=== PATIENT | male | born 2000 | race Caucasian/White ===

== ENCOUNTER 2021-07-26 10:27 | Emergency (ER) | payer BC, OTHER ==
--- OUTSIDE RECORDS SUMMARY | 2021-07-26 10:30 | XMS REPORT | Continuity of Care Document ---
:2000 Author Organization [facility] t Address [address] [place] [address] Care Team Providers Name Role Phone IHDE_G Attending Clinician Unavailable Hipolito_Cole Attending Clinician Unavailable CARIAS Attending Clinician Unavailable IHDE_G Admitting Clinician Unavailable Randall Admitting Clinician Unavailable Payers Payer Name Policy Type Policy Number Effective Date Expiration Date S lu[place] [id number] 2019 00:00:00 [place] Problems Condition Condition Condition Status Onset Resolution Last Treating Co mments Source Name Details Category Date Date Treatment Clinician Date Anxiety Anxiety Problem Active [facility] 3-23 da 00:00: Medical 00 Group Allergies, Adverse Reactions, Alerts This patient has no known allergies or adverse reactions. Social History Smoking Status Start Date Stop Date Source Never Smoker [facility] Medications Ordered Filled Start Stop Current Ordering Indication Dosage Frequency Signature Comments Components Source Medication Medication Date Date Medication? Clinician (SIG) Name Name hydroxyzine hydroxyzine No hydroxyzin [facility] HCl 25 mg HCl 25 mg e HCl 25 d a tablet TAKE tablet TAKE mg tablet Medical 1 TO 2 1 TO 2 TAKE 1 TO Group TABLETS BY TABLETS BY 2 TABLETS MOUTH EVERY MOUTH EVERY BY MOUTH 6 HOURS 6 HOURS EVERY 6 NEEDED FOR NEEDED FOR HOURS ANXIETY ANXIETY NEEDED FOR ANXIETY paroxetine paroxetine No paroxetine [facility] 20 mg 20 mg 20 mg da tablet TAKE tablet TAKE tablet Medical 1 TABLET BY 1 TABLET BY TAKE 1 Group MOUTH EVERY MOUTH EVERY TABLET BY NIGHT AT NIGHT AT MOUTH BEDTIME BEDTIME EVERY NIGHT AT BEDTIME Vital Signs Vital Name Observation Time Observation Value Comments Source BP Diastolic 2020-06-21 00:00:00 68 mm[Hg] [facility] Height 2020-06-21 00:00:00 68 [in_i] [facility] BMI (Body Mass 2020-06-21 00:00:00 26.6 kg/m2 [facility] Index) Group BP Systolic 2020-06-21 00:00:00 122 mm[Hg] [facility] Body Weight 2020-06-21 00:00:00 175 [lb_av] [facility] Height 2020-05-31 00:00:00 68 [in_i] [facility] BMI (Body Mass 2020-05-31 00:00:00 26.7 kg/m2 [facility] Index) Group BP Systolic 2020-05-31 00:00:00 127 mm[Hg] [facility] Body Weight 2020-05-31 00:00:00 175.3 [lb_av] [facility] BP Diastolic 2020-05-31 00:00:00 82 mm[Hg] [facility] Procedures This patient has no known procedures. Encounters Start End Encounter Admission Attending Care Care Encounter Source Date/Time Date/Time Type Type Clinicians Facility Department ID 2020-09-02 2020-09-02 Outpatient I[facility]DE_G [facility] [id number] [facility] 01:02:00 01:02:00 [facility] 2020-07-29 2020-07-29 Outpatient I[facility]_G [facility] [id number] [facility] 01:02:00 01:02:00 0430 [facility] 2020-06-24 2020-06-24 Outpatient IHDE_G MMG MMG [id number] [facility] 01:02:00 01:02:00 0326 [facility] 2020-06-21 2020-06-21 Outpatient IHDE_G MMG MMG [id number] [facility] 04:08:00 04:08:00 0323 [facility] 2020-06-212020-06-21 Outpatient IHDE_G MMG [facility] [id number] [facility] 04:08:00 04:08:00 0324 Medical Group 2020-06-21 2020-06-21 Cristian [facility] [place] - [id number] M [facility] 00:00:00 00:00:00 Luis Manuel Caldwell MD: [facility] [address], [place] [address] , Ph. [phone] 2020-05-31 2020-05-31 [place] [id number] [facility] 06:16:00 06:16:00 0302 Medical Group 2020-05-31 2020-05-31 [place] [id number] [facility] 06:16:00 06:16:00 0315 Medical Group 2020-05-31 2020-05-31 Outpatient Young_J MMG [facility] [id number] [facility] 06:16:00 06:16:00 0322 Medical Group 2020-05-31 2020-05-31 Cristian [facility] [place] - [id number] M [facility] 00:00:00 00:00:00 Luis Manuel Caldwell MD: [facility] [address], [place] [address] , Ph. [phone] 2020-01-11 2020-01-11 Outpatient Young_J MMG [facility] [id number] [facility] 05:13:00 05:13:00 0224 Medical Group 2020-01-11 2020-01-11 [place] [id number] [facility] 05:13:00 05:13:00 1012 Medical Group 2019-12-27 2019-12-27 Emergency [facility] [id number] [place] [address] 00:00:00 00:00:00 QUINTIN [address] Results Test Description Test Time Test Comments Results Result Comments Source CBC W Auto Differential panel - Blood 2020-06-02 01:36:00 Test Item Value Reference Range Interpretation Comme nts white blood count (test code = white blood count) 6.7 K/uL 4.0- 12.3 red blood count (test code = red blood count) 4.85 M/uL 3.80-5.8 0 hemoglobin (test code = hemoglobin) 14.7 g/dL 11.7-17.2 hematocrit (test code = hematocrit) 43.8 % 35.0-51.0 MCV [Entitic volume] (test code = 85915-1) 90.3 fL 83-100 mean corpuscular hemoglobin (test code = mean corpuscular 30.3 pg 26.8-33.4 hemoglobin) mean corpuscular HGB conc (test code = mean corpuscular HGB 33.6 g/ dL 30-35 conc) red cell distribution width (test code = red cell 11.8 % 12.0 -14.0 L distribution width) platelet count (test code = platelet count) 243 K/uL 175-450 mean platelet volume (test code = mean platelet volume) 10.7 fL 9.4-12.6 Segmented neutrophils/100 leukocytes in Blood (test code = 65.5 % 44.7-82.4 76671-4) Immature granulocytes [#/volume] in Blood (test code = 0.0 K/uL 0.0-0.03 H 39892-5) lymphocyte% (test code = lymphocyte%) 24.8 % 10.0-50.0 mono % (test code = mono %) 7.0 % 3.9-13.4 eos % (test code = eos %) 1.2 % 0.0-6.4 Basophils/100 leukocytes in Unspecified specimen (test code 0.9 % 0.2-1.2 = 17467-6) Band form neutrophils [#/volume] in Blood (test code = 4.42 K/uL 1.78-5.38 98694-9) Lymphocytes [#/volume] in Unspecified specimen by Automated 1.7 K/u L 1.32-3.57 count (test code = 24195-7) mono # (test code = mono #) 0.47 K/uL 0.30-0.82 eos # (test code = eos #) 0.08 K/uL 0.04-0.54 basophil # (test code = basophil #) 0.06 K/uL 0.01-0.08 NRBC% (test code = NRBC%) 0 /100 WBC 0-0.2 NRBC# (test code = NRBC#) 0 K/uL [facility] unspecified - [id number] 01:36:00NeutrophilsBandLymphocyteAtypical LymphMonocyteEosinophilBasophilMetamyelocyteMyelocytePromyelocyteBlastsNucleated Red Blood CellOther Cell TypeAbs Neutrophil Count (Man)Abs Lymph Count (Man)Abs Monocyte Count (Man)Abs Eosinophil Count (Man)Abs Basophil Count (Man)Platelet EstimatePlatelet MorphologyPo ikilocytosisAnisocytosisMacrocytosisSchistocytesTarget CellsTear Drop CellsOvalocytesToxic GranulationBurr CellsRouleauToxic VacuolationDifferential comment-[facility] SystemComprehensive metabolic 2000 panel - Serum or [id number] 01:36:00 Test Item Value Reference Range Interpretation Comments Glucose [Mass/volume] in Serum or 86 mg/dL 74-106 Plasma (test code = 2345-7) Urea nitrogen [Mass/volume] in 13 mg/dL 6-20 Serum or Plasma (test code = 3094-0) osmolality calculated,serum (test 275 mOsm/kg 280-300 L code = osmolality calculated,serum) creatinine (test code = 0.8 mg/dL 0.70-1.20 creatinine) glomerular filtration rate (test >60.00 code = glomerular filtration rate) Urea nitrogen/Creatinine [Mass 16.3 12-20 Ratio] in Serum or Plasma (test code = 3097-3) sodium level (test code = sodium 138 mmol/L 135-145 level) potassium level (test code = 4.1 mmol/L 3.5-5.2 potassium level) chloride level (test code = 103 mmol/L 98-108 chloride level) CO2 (test code = CO2) 27 mmol/L 21-32 anion gap (test code = anion gap) 12.1 mEq/L 12-20 calcium level (test code = 9.6 mg/dL 8.6-10.0 calcium level) total protein (test code = total 7.5 g/dL 6.6-8.7 protein) albumin (test code = albumin) 4.6 g/dL 3.5-5.2 globulin (test code = globulin) 2.9 gm/dL A/G ratio (test code = A/G ratio) 1.6 >1.0 bilirubin,total (test code = 0.4 mg/dL 0.0-1.2 bilirubin,total) AST/SGOT (test code = AST/SGOT) 19 U/L 15-40 Alanine aminotransferase 20 U/L 0-41 [Enzymatic activity/volume] in Serum or Plasma (test code = 1742-6) Alkaline phosphatase [Enzymatic 66 U/L 40-130 activity/volume] in Serum or Plasma (test code = 6768-6) [facility]
[2021-07-26] MEDS ORDERED: NA CHLORIDE 0.9% 1,000 ML ONE (10:44)
[2021-07-26] MEDS ORDERED: MORPHINE 4 MG/ML SYR ONE (10:44)
[2021-07-26] MEDS ORDERED: ONDANSETRON 4 MG/2 ML VIAL ONE (10:44)
[2021-07-26 10:55] LABS: Absolute Lymphocytes (CBC) 2.8 K/uL (0.7-4.9); Hematocrit 43.8 % (39.6-49.0); Lymphocytes % 35.5 % (15.3-44.8); MPV 9.6 fL (7.6-11.3); RBC Red Blood Cell Count 5.01 M/uL (4.33-5.43)
--- NOTE | 2021-07-26 11:00 | RAD REPORT ---
EXAM DESCRIPTION: CTStone Protocol - 07/26/2021 10:51 am CLINICAL HISTORY: Flank pain, kidney stone suspected COMPARISON: CT ABD PELVIS W CONTRAST dated 10/06/2007 TECHNIQUE: CT of the abdomen and pelvis was performed. All CT scans are performed using dose optimization technique as appropriate and may include automated exposure control or mA/KV adjustment according to patient size. FINDINGS: Lower chest: 2 mm left lower lobe pulmonary nodule which is almost certainly benign. Liver: No acute abnormality or suspicious lesions. Biliary: No biliary ductal dilatation. Stomach: No significant focal abnormality. Duodenum: No significant focal abnormality. Pancreas: No significant abnormality. Spleen: No significant abnormality. Adrenal: No suspicious lesions. Kidney/ureter: Mild left-sided hydronephrosis secondary to a 4 mm stone in the left proximal ureter. Punctate stone versus papillary tip calcification in the lower pole the right kidney. Retroperitoneum: No retroperitoneal adenopathy. Vascular: No aneurysm. Bowel: No significant focal abnormality. Appendectomy. Peritoneum: No ascites or free air. Bladder: Grossly unremarkable. Reproductive: No adnexal masses. Bones: No acute fracture. Other: n/a IMPRESSION: Mild left-sided hydronephrosis secondary to a 4 mm stone in the left proximal ureter.
[2021-07-26 11:02] LABS: Albumin 4.3 g/dL (3.4-5.0); Bilirubin Total 0.4 mg/dL (0.2-1.0); Potassium 3.4 mmol/L (3.5-5.1)
[2021-07-26] MEDS ORDERED: MAGNESIUM SULFATE 1 gm IVPB 1 GM/100 ML BAG IV ONE (11:50)
[2021-07-26] MEDS ORDERED: KETOROLAC 30 MG/ML INJ ONE (11:50)
[2021-07-26] MEDS ORDERED: NA CHLORIDE 0.9% 2,000 ML ONE (11:50)
[2021-07-26] MEDS ORDERED: TAMSULOSIN 0.4 MG SR CAP ONE (12:00)
[2021-07-26 12:46] LABS: Urine Blood 3+ (Negative); Urine Glucose Negative (Negative); Urine Protein Negative (Negative); Urine Specific Gravity 1.015 (1.005-1.030)
--- NOTE | 2021-07-26 13:52 | EDPHYS ---
Physician Documentation [facility] Name: Reddy Julio Age: 20 yrs Sex: Male : 2000 Arrival Date: 07/26/2021 Time: 10:28 Bed 14 Private MD: ED Physician Parviz Sheppard HPI: 07/26 10:38 This 20 yrs old Male presents to ER via Ambulatory with complaints of Possible Kidney jmm Stone. 10:38 The patient complains of pain in the left flank. The pain radiates to the abdomen. jmm Onset: The symptoms/episode began/occurred acutely, today. Modifying factors: The symptoms are alleviated by nothing. the symptoms are aggravated by nothing. Associated signs and symptoms: Pertinent negatives:. 13:50 Is a 20-year-old male no chronic medical conditions presents emerged department with jmm complaints of left flank pain beginning earlier this morning. Also complains of nausea and vomiting. Patient had a previous calculus of his ureter about a week ago. Denies fever or chills. Denies diarrhea. Pain radiates into his abdomen. Historical: - Allergies: 10:38 No Known Allergies; jh6 - Immunization history:: Adult Immunizations up to date. - Social history:: Smoking status: Patient denies any tobacco usage or history of. ROS: 13:50 Constitutional: Negative for fever, chills, and weight loss, Cardiovascular: Negative jmm for chest pain, palpitations, and edema, Respiratory: Negative for shortness of breath, cough, wheezing, and pleuritic chest pain. 13:50 Abdomen/GI: Positive for abdominal pain. 13:50 All other systems are negative. Exam: 13:50 Constitutional: This is a well developed, well nourished patient who is awake, alert, jmm and in no acute distress. Head/Face: atraumatic. Eyes: EOMI, no conjunctival erythema appreciated ENT: Moist Mucus Membranes Neck: Trachea midline, Supple Chest/axilla: Normal chest wall appearance and motion. Cardiovascular: Regular rate and rhythm. No edema appreciated Respiratory: Normal respirations, no respiratory distress appreciated 13:50 Skin: General appearance color normal MS/ Extremity: Moves all extremities, no obvious deformities appreciated, no edema noted to the lower extremities Neuro: Awake and alert Psych: Behavior is normal, Mood is normal, Patient is cooperative and pleasant 13:50 Abdomen/GI: Inspection: abdomen appears normal, Bowel sounds: normal, Palpation: soft, moderate abdominal tenderness, in the left lower quadrant. Vital Signs: 10:35 BP 145 / 103; Pulse 77; Resp 18; Temp 98.2; Pulse Ox 100% on R/A; Weight 85.73 kg; ph Height 5 ft. 9 in. (175.26 cm); Pain 10/10; 12:01 BP 123 / 86; Pulse 63; Resp 18; Pulse Ox 97% on R/A; ph 13:00 BP 118 / 79; Pulse 61; Resp 18; Pulse Ox 99% on R/A; ph 14:00 BP 120 / 82; Pulse 68; Resp 19; Temp 98.1; Pulse Ox 100% ; ph 10:35 Body Mass Index 27.91 (85.73 kg, 175.26 cm) ph MDM: 10:38 Patient medically screened. cliff 13:51 Data reviewed: vital signs, nurses notes. Counseling: I had a detailed discussion with doron the patient and/or guardian regarding: the historical points, exam findings, and any diagnostic results supporting the discharge/admit diagnosis, lab results, radiology results, the need for outpatient follow up, to return to the emergency department if symptoms worsen or persist or if there are any questions or concerns that arise at home. ED course: Patient is alert nontoxic in appearance in the ED. Pain is relieved in the ER. Patient advised follow with urology and otherwise given strict return precautions. Patient understood agrees plan of care.. 07/26 10:38 Order name: CBC with Diff; Complete Time: 11:15 [facility] 07/26 10:38 Order name: CMP; Complete Time: 11:15 [facility] 07/26 10:38 Order name: Lipase; Complete Time: 11:15 [facility] 07/26 10:39 Order name: CT Stone Protocol; Complete Time: 11:15 [facility] 07/26 12:46 Order name: Urine Dipstick-Ancillary; Complete Time: 12:46 [facility] 07/26 10:38 Order name: IV Saline Lock; Complete Time: 10:41 [facility] 07/26 10:38 Order name: Labs collected and sent; Complete Time: 10:41 [facility] Administered Medications: 10:50 Drug: NS 0.9% 1000 ml Route: IV; Rate: 1 bolus; Site: right antecubital; jh6 14:32 Follow up: Response: No adverse reaction; IV Status: Completed infusion ph 10:50 Drug: Zofran (Ondansetron) 4 mg Route: IVP; Site: right antecubital; [facility] 12:00 Follow up: Response: No adverse reaction; Nausea is decreased ph 10:50 Drug: morphine 4 mg Route: IVP; Site: right antecubital; [facility] 12:00 Follow up: Response: No adverse reaction; Pain is decreased ph 11:51 Drug: NS 0.9% 2000 ml Route: IV; Rate: 1 bolus; Site: right antecubital; [facility] 14:31 Follow up: Response: No adverse reaction; IV Status: Completed infusion; IV Intake: ph 2000ml 11:51 Drug: Magnesium Sulfate 1 grams Route: IVPB; Infused Over: 1 hrs; Site: right [facility] antecubital; 12:50 Follow up: Response: No adverse reaction; IV Status: Completed infusion ph 11:51 Drug: Ketorolac 30 mg Route: IVP; Site: right antecubital; [facility] 12:01 Follow up: Response: No adverse reaction; Pain is decreased ph 12:00 Drug: Flomax (tamsulosin) 0.4 mg Route: PO; ph 12:01 Follow up: Response: No adverse reaction ph Disposition: 17:14 Co-signature as Attending Physician, Parviz Sheppard MD I agree with the assessment and kdr plan of care. Disposition Summary: 07/26/21 13:52 Discharge Ordered Location: Home [facility] Condition: Stable [facility] Diagnosis - Calculus of ureter [facility] Followup: [facility] - With: Private Physician - When: 2 - 3 days - Reason: Recheck today's complaints, Continuance of care, Re-evaluation by your physician Discharge Instructions: - Discharge Summary Sheet [facility] - Kidney Stones [facility] Forms: - Medication Reconciliation Form [facility] - Thank You Letter [facility] - Antibiotic Education [facility] - Prescription Opioid Use [facility] - Work release form ph Prescriptions: - Ultracet 37.5-325 mg Oral Tablet - take 1 tablet by ORAL route every 6 hours - for up to 5 days; do not exceed 8 jmm tablets per day.; 12 tablet; Refills: 0, Product Selection Permitted - ondansetron 4 mg Oral tablet,disintegrating - place 1 tablet by TRANSLINGUAL route every 8 hours As needed; 20 tablet; jmm Refills: 0, Product Selection Permitted Signatures: Dispatcher [employer] Parviz Luevano MD MD kdr Mickail, Joel, PA PA jmm Hall, Patricia, RN RN ph Hastedt, Jennifer, RN RN jh6 Corrections: (The following items were deleted from the chart) 13:50 10:38 Associated signs and symptoms: Pertinent negatives: doron sal
--- NOTE | 2021-07-26 13:52 | ER ---
Nurse's Notes [facility] Name: Reddy Julio Age: 20 yrs Sex: Male : 2000 Arrival Date: 07/26/2021 Time: 10:28 Bed 14 Private MD: Diagnosis: Calculus of ureter Presentation: 07/26 10:37 Chief complaint: Patient states: sudden onset of l sided flank pain that started this jh6 am. was told this last week that he had a large kidney stone present and that she should be able to pass it. Coronavirus screen: Vaccine status: Patient reports being unvaccinated. Ebola Screen: Patient negative for fever greater than or equal to 101.5 degrees Fahrenheit, and additional compatible Ebola Virus Disease symptoms Patient denies exposure to infectious person. Patient denies travel to an Ebola-affected area in the 21 days before illness onset. Initial Sepsis Screen: Does the patient meet any 2 criteria? Does the patient have a suspected source of infection? No. Patient's initial sepsis screen is negative. Risk Assessment: Do you want to hurt yourself or someone else? Patient reports no desire to harm self or others. Onset of symptoms was July 26, 2021. 10:37 Method Of Arrival: Ambulatory [facility] 10:37 Acuity: FRANK 3 6 Triage Assessment: 10:39 General: Appears distressed, uncomfortable, Behavior is cooperative, anxious. Pain: [facility] Complains of pain in mid back area and left mid back Pain radiates to left femoral area, left inguinal area and left iliac crest Pain currently is 10 out of 10 on a pain scale. Quality of pain is described as sharp, shooting, Pain began suddenly, Is continuous. GI: Reports nausea. Historical: - Allergies: 10:38 No Known Allergies; [facility] - Immunization history:: Adult Immunizations up to date. - Social history:: Smoking status: Patient denies any tobacco usage or history of. Screenin:40 Abuse screen: Denies threats or abuse. Nutritional screening: No deficits noted. [facility] Tuberculosis screening: No symptoms or risk factors identified. Fall Risk Assessment: 10:40 General: see triage note. [facility] 10:41 GI: Bowel sounds present X 4 quads. Abd is soft Abdomen is tender to palpation in left [facility] lower quadrant. 12:00 Reassessment: Patient appears in no apparent distress at this time. Patient and/or ph family updated on plan of care and expected duration. Pain level reassessed. Patient is alert, oriented x 3, equal unlabored respirations, skin warm/dry/pink. 13:30 Reassessment: Patient appears in no apparent distress at this time. Patient and/or ph family updated on plan of care and expected duration. Pain level reassessed. Patient is alert, oriented x 3, equal unlabored respirations, skin warm/dry/pink. 14:32 Reassessment: Patient appears in no apparent distress at this time. Patient and/or ph family updated on plan of care and expected duration. Pain level reassessed. Patient is alert, oriented x 3, equal unlabored respirations, skin warm/dry/pink. Pt d/c home Patient states symptoms have improved. Vital Signs: 10:35 BP 145 / 103; Pulse 77; Resp 18; Temp 98.2; Pulse Ox 100% on R/A; Weight 85.73 kg; ph Height 5 ft. 9 in. (175.26 cm); Pain 10/10; 12:01 BP 123 / 86; Pulse 63; Resp 18; Pulse Ox 97% on R/A; ph 13:00 BP 118 / 79; Pulse 61; Resp 18; Pulse Ox 99% on R/A; ph 14:00 BP 120 / 82; Pulse 68; Resp 19; Temp 98.1; Pulse Ox 100% ; ph 10:35 Body Mass Index 27.91 (85.73 kg, 175.26 cm) ph ED Course: 10:28 Patient arrived in ED. ds1 10:29 Itz Zamora PA is PHCP. [facility] 10:29 Parviz Sheppard MD is Attending Physician. [facility] 10:32 Patient placed in an exam room, on a stretcher, on pulse oximetry. 6 10:34 Asuncion Aly RN is Primary Nurse. ph 10:38 Triage completed. 6 10:40 Inserted saline lock: 18 gauge in right antecubital area, using aseptic technique. 6 Blood collected. 10:40 Initial lab(s) drawn, by mt, sent to lab. 6 10:41 Patient has correct armband on for positive identification. Bed in low position. Call [facility] light in reach. Side rails up X 1. Adult w/ patient. 10:[address] via wheelchair. [facility] 10:53 CT Stone Protocol In Process Unspecified. EDMS 14:34 No provider procedures requiring assistance completed. IV discontinued, intact, ph bleeding controlled, No redness/swelling at site. Pressure dressing applied. Administered Medications: 10:50 Drug: NS 0.9% 1000 ml Route: IV; Rate: 1 bolus; Site: right antecubital; [facility] 14:32 Follow up: Response: No adverse reaction; IV Status: Completed infusion ph 10:50 Drug: Zofran (Ondansetron) 4 mg Route: IVP; Site: right antecubital; [facility] 12:00 Follow up: Response: No adverse reaction; Nausea is decreased ph 10:50 Drug: morphine 4 mg Route: IVP; Site: right antecubital; [facility] 12:00 Follow up: Response: No adverse reaction; Pain is decreased ph 11:51 Drug: NS 0.9% 2000 ml Route: IV; Rate: 1 bolus; Site: right antecubital; [facility] 14:31 Follow up: Response: No adverse reaction; IV Status: Completed infusion; IV Intake: ph 2000ml 11:51 Drug: Magnesium Sulfate 1 grams Route: IVPB; Infused Over: 1 hrs; Site: right [facility] antecubital; 12:50 Follow up: Response: No adverse reaction; IV Status: Completed infusion ph 11:51 Drug: Ketorolac 30 mg Route: IVP; Site: right antecubital; [facility] 12:01 Follow up: Response: No adverse reaction; Pain is decreased ph 12:00 Drug: Flomax (tamsulosin) 0.4 mg Route: PO; ph 12:01 Follow up: Response: No adverse reaction ph Intake: 14:31 IV: 2000ml; Total: 2000ml. ph Outcome: 13:52 Discharge ordered by . belle 14:34 Discharged to home ambulatory. ph 14:34 Condition: good 14:34 Discharge instructions given to patient, Instructed on discharge instructions, follow up and referral plans. medication usage, Demonstrated understanding of instructions, follow-up care, medications, Prescriptions given X 2. 14:34 Patient left the ED. ph Signatures: Dispatcher [employer] EDMS Itz Zamora PA PA jmm Sanford, Demi ds1 Asuncion Aly RN RN ph Hastedt, Inés, RN RN jh6
[2021-07-26 14:43] VITALS: BP 120/82; TEMP 98.1; O2SAT 100
== END 2021-07-26 14:34 | disposition home or self-care (01) ==
LOC: ER 10:27
DX: N20.1 Calculus of ureter (principal); Z87.442 Personal history of urinary calculi
CPT/HCPCS: 96365; 96361; 85025; 36415; 81003; 83690; 80053; 76377; 74176; 96375; 99284; J3475; J7030 ×2; J2405

== ENCOUNTER 2021-08-22 15:21 | Emergency (ER) | payer BC ==
--- OUTSIDE RECORDS SUMMARY | 2021-08-22 15:25 | XMS REPORT | Continuity of Care Document ---
:2000 Author Organization [facility] t Address [address] [place] [address] Care Team Providers Name Role Phone IHDE_G Attending Clinician Unavailable Hipolito_Cole Attending Clinician Unavailable CARIAS Attending Clinician Unavailable IHDE_G Admitting Clinician Unavailable Hipolito_Cole Admitting Clinician Unavailable Payers Payer Name Policy Type Policy Number Effective Date Expiration Date S lu[place] [id number] 2019 00:00:00 [place] Problems Condition Condition Condition Status Onset Resolution Last Treating Co mments Source Name Details Category Date Date Treatment Clinician Date Anxiety Anxiety Problem Active [facility] 3[facility]23 da 00:00: Medical 00 Group Allergies, Adverse Reactions, Alerts This patient has no known allergies or adverse reactions. Social History Smoking Status Start Date Stop Date Source Never Smoker [facility] Medications Ordered Filled Start [...] BMI (Body Mass 2020-06-21 00:00:00 26.6 kg/m2 [facility] Index) Group BP Systolic 2020-06-21 00:00:00 122 mm[Hg] [facility] Body Weight 2020-06-21 00:00:00 175 [lb_av] [facility] Height 2020-05-31 00:00:00 68 [in_i] [facility] BMI (Body Mass 2020-05-31 00:00:00 26.7 kg/m2 [facility] Index) Group BP Systolic 2020-05-31 [...] ID 2020-09-02 2020-09-02 Outpatient IHDE_G [facility] [id number] [place] 01:02:00 01:02:00 [facility]604 [facility] 2020-07-29 2020-07-29 Outpatient IHDE_G MMG MMG [id number] [place] 01:02:00 01:02:00 0430 [facility] 2020-06-24 2020-06-24 Outpatient IHDE_G MMG MMG [id number] [place] 01:02:00 01:02:00 0326 [facility] 2020-06-21 2020-06-21 Outpatient IHDE_G MMG MMG [id number] [place] 04:08:00 04:08:00 0324 [facility] 2020-06-212020-06-21 Outpatient IHDE_G MMG [facility] [id number] [place] 04:08:00 04:08:00 0323 Medical Group 2020-06-21 2020-06-21 Cristian [facility] [place] - [id number] M [facility] 00:00:00 00:00:00 Luis Manuel Caldwell MD: [facility] [address], [place] [address] , Ph. [phone] 2020-05-31 2020-05-31 [place] [id number] [place] 06:16:00 06:16:00 0302 Medical Group 2020-05-31 2020-05-31 [place] [id number] [place] 06:16:00 06:16:00 0315 Medical Group 2020-05-31 2020-05-31 Outpatient Young_J MMG [facility] [id number] [place] 06:16:00 06:16:00 0322 Medical Group 2020-05-31 2020-05-31 Cristian [facility] [place] - [id number] M [facility] 00:00:00 00:00:00 Luis Manuel Caldwell MD: [facility] [address], [place] [address] , Ph. [phone] 2020-01-11 2020-01-11 [place] [id number] [place] 05:13:00 05:13:00 0224 Medical Group 2020-01-11 2020-01-11 Outpatient Young_J MMG MMG [id number] [place] 05:13:00 05:13:00 1012 Medical Group 2019-12-27 2019-12-27 Emergency [facility] [id number] [place] [address] 00:00:00 00:00:[address] QU[address] [...] 35.0-51.0 MCV [Entitic volume] (test code = 77679-5) 90.3 fL 83-100 mean corpuscular hemoglobin (test [...] Blood (test code = 65.5 % 44.7-82.4 59220-5) Immature granulocytes [#/volume] in Blood (test code = 0.0 K/uL 0.0-0.03 H 20783-0) lymphocyte% (test code = lymphocyte%) 24.8 % 10.0-50.0 mono % (test code = mono %) 7.0 % 3.9-13.4 eos % (test code = eos %) 1.2 % 0.0-6.4 Basophils/100 leukocytes in Unspecified specimen (test code 0.9 % 0.2-1.2 = 41283-2) Band form neutrophils [#/volume] in Blood (test code = 4.42 K/uL 1.78-5.38 88491-8) Lymphocytes [#/volume] in Unspecified specimen by Automated 1.7 K/u L 1.32-3.57 count (test code = 33519-0) mono # (test code = mono #) 0.47 K/uL 0.30-0.82 eos # (test code = eos #) 0.08 K/uL 0.04-0.54 basophil # (test code = basophil #) 0.06 K/uL 0.01-0.08 NRBC% (test code = NRBC%) 0 /100 WBC 0-0.2 NRBC# (test code = NRBC#) 0 K/uL [facility], method unspecified - [id number] 01:36:00NeutrophilsBandLymphocyteAtypical LymphMonocyteEosinophilBasophilMetamyelocyteMyelocytePromyelocyteBlastsNucleated Red Blood CellOther Cell TypeAbs Neutrophil Count (Man)Abs Lymph Count (Man)Abs Monocyte Count (Man)Abs Eosinophil Count (Man)Abs Basophil Count (Man)Platelet EstimatePlatelet MorphologyPo ikilocytosisAnisocytosisMacrocytosisSchistocytesTarget CellsTear Drop CellsOvalocytesToxic GranulationBurr CellsRouleauToxic VacuolationDifferential comment-[facility] HospitalComprehensive metabolic 2000 panel - Serum or [id number] 01:36:00 Test Item Value Reference Range Interpretation [...] Serum or Plasma (test code = 6768-6) [facility]
[2021-08-22] MEDS ORDERED: KETOROLAC 30 MG/ML INJ ONE (15:39)
[2021-08-22] MEDS ORDERED: NA CHLORIDE 0.9% 1,000 ML ONE (15:39)
[2021-08-22 15:53] LABS: Absolute Lymphocytes (CBC) 2.8 K/uL (0.7-4.9); Hematocrit 45.3 % (39.6-49.0); Lymphocytes % 32.5 % (15.3-44.8); MPV 9.6 fL (7.6-11.3); RBC Red Blood Cell Count 5.17 M/uL (4.33-5.43)
[2021-08-22 16:03] LABS: Albumin 4.4 g/dL (3.4-5.0); Bilirubin Total 0.5 mg/dL (0.2-1.0); Potassium 3.3 mmol/L (3.5-5.1); Protein, Total 7.9 g/dL (6.4-8.2)
--- NOTE | 2021-08-22 16:20 | RAD REPORT ---
EXAM DESCRIPTION: CT - Stone Protocol - 08/22/2021 3:56 pm CLINICAL HISTORY: Flank pain, kidney stone suspected COMPARISON: Stone Protocol dated 07/26/2021; CT ABD PELVIS W CONTRAST dated 10/06/2007 TECHNIQUE: Axial 3 mm thick images were obtained without oral or IV contrast. The [id number] span s the entirety of the system including uppermost abdomen and lung bases. All CT scans are performed using dose optimization technique as appropriate and may include automated exposure control or mA/KV adjustment according to patient size. FINDINGS: Mild left-sided hydronephrosis is present secondary to a 4 millimeter distal left ureteral stone 2 cm from the UVJ. No history of intervention since the July 26 study. None finding likely re presents migration of the left UPJ stone detailed July 26. No right-sided hydronephrosis. No other o bstructing or nonobstructing calculi. No suspicious renal masses. Isodense masses and pyelonephritis are not excluded on a stone protocol CT scan. No significant adrenal finding. No urinary bladder susp icious finding. Imaged portions of the liver, spleen and pancreas show no suspicious findings on non-contrast imaging . No gallbladder or biliary tree abnormality identified. No suspicious bowel findings. No hernia, mass or bulky lymphadenopathy noted. No free air, free fluid or inflammatory stranding. No significant bony abnormality. IMPRESSION: Mild hydronephrosis secondary to a 4 mm distal left ureteral stone 2 cm from the bladder . No history of intervention was noted. Current stone is likely distal migration of the UPJ stone seen on the July 26 study. Isodense masses and pyelonephritis are not excluded on stone protocol technique.
[2021-08-22] MEDS ORDERED: TAMSULOSIN 0.4 MG SR CAP ONE (16:46)
[2021-08-22 16:56] LABS: Urine Blood 2+ (Negative); Urine Glucose Negative (Negative); Urine Protein 1+ (Negative); Urine Specific Gravity >=1.030 (1.005-1.030); Urine pH 5.5 (5.0-7.0)
[2021-08-22 17:32] LABS: Urine Bacteria <20 /HPF (NONE SEEN); Urine Mucus HEAVY /HPF (NONE SEEN)
--- NOTE | 2021-08-22 18:08 | ER ---
Nurse's Notes [facility] Name: Reddy Julio Age: 21 yrs Sex: Male : 2000 Arrival Date: 08/22/2021 Time: 15:23 Bed 8 Private MD: Diagnosis: Calculus of ureter Presentation: 08/22 15:26 Chief complaint: Patient states: left flank pain that began this morning. Hx of kidney aa5 stones. pt also reports nausea. Pt restless during triage. 15:26 Coronavirus screen: nausea. Ebola Screen: No symptoms or risks identified at this time. aa5 Initial Sepsis Screen: Does the patient meet any 2 criteria? No. Patient's initial sepsis screen is negative. Does the patient have a suspected source of infection? No. Patient's initial sepsis screen is negative. Risk Assessment: Do you want to hurt yourself or someone else? Patient reports no desire to harm self or others. Onset of symptoms was August 22, 2021. 15:26 Acuity: FRANK 2 aa5 15:26 Method Of Arrival: Ambulatory aa5 Triage Assessment: 15:30 General: Appears distressed, uncomfortable, Behavior is cooperative, appropriate for bp age, agitated. Pain: Complains of pain in left flank. EENT: No deficits noted. Neuro: No deficits noted. Cardiovascular: No deficits noted. Respiratory: No deficits noted. GI: Abdomen is non-distended. : No signs and/or symptoms were reported regarding the genitourinary system. Derm: No deficits noted. Musculoskeletal: No deficits noted. Historical: - Allergies: 15:35 No Known Allergies; aa5 - PMHx: 15:35 Kidney stone; aa5 - Immunization history:: Adult Immunizations up to date. - Social history:: Smoking status: unknown. Screenin:30 Abuse screen: Denies threats or abuse. Denies injuries from another. Nutritional bp screening: No deficits noted. Tuberculosis screening: No symptoms or risk factors identified. Fall Risk None identified. Assessment: 15:30 General: SEE TRIAGE NOTE. bp 16:30 Reassessment: No changes from previously documented assessment. Patient and/or family bp updated on plan of care and expected duration. Pain level reassessed. 18:15 Reassessment: PT D/C HOME AMBULATORY WITH FAMILY, DX WITH CALCULUS OF URETER. bp Vital Signs: 15:26 BP 152 / 94; Pulse 76; Resp 20 S; Temp 98.2(O); Pulse Ox 99% on R/A; Weight 86.18 kg aa5 (R); Height 5 ft. 8 in. (172.72 cm) (R); 16:18 BP 136 / 88; Pulse 16; Resp 17; Pulse Ox 99% ; bp 18:14 BP 133 / 92; Pulse 62; Resp 16; Pulse Ox 100% ; bp 15:26 Body Mass Index 28.89 (86.18 kg, 172.72 cm) aa5 ED Course: 15:23 Patient arrived in ED. rg4 15:26 Donavan Rubalcava, RN is Primary Nurse. bp 15:26 Arm band placed on Patient placed in an exam room, on a stretcher. aa5 15:27 Jhony Bryan NP is PHCP. pm1 15:27 Ismael Morales MD is Attending Physician. pm1 15:30 Patient has correct armband on for positive identification. Bed in low position. Call bp light in reach. Side rails up X2. 15:32 Primary Nurse role handed off by Donavan Rubalcava, RN jd3 15:32 Thony La, JULIUS is Primary Nurse. jd3 15:35 Triage completed. aa5 15:35 Inserted saline lock: 20 gauge in right antecubital area, using aseptic technique. aa5 15:58 CT Stone Protocol In Process Unspecified. EDMS 18:15 No provider procedures requiring assistance completed. IV discontinued, intact, bp bleeding controlled, No redness/swelling at site. Pressure dressing applied. Administered Medications: 15:39 Drug: NS 0.9% 1000 ml Route: IV; Rate: 1 bolus; Site: right antecubital; jd3 18:16 Follow up: IV Status: Completed infusion; IV Intake: 1000ml bp 15:39 Drug: Ketorolac 30 mg Route: IVP; Site: right antecubital; jd3 16:45 Follow up: Response: Pain is decreased bp 16:44 Drug: Flomax (tamsulosin) 0.4 mg Route: PO; bp 16:57 Follow up: Response: No adverse reaction bp Medication: 18:15 VIS not applicable for this client. bp Intake: 18:16 IV: 1000ml; Total: 1000ml. bp Outcome: 18:07 Discharge ordered by MD. pm1 18:15 Discharged to home ambulatory, with family. bp 18:15 Condition: stable 18:15 Discharge instructions given to patient, Instructed on discharge instructions, follow up and referral plans. medication usage, Demonstrated understanding of instructions, follow-up care, medications, Prescriptions given X 2. 18:17 Patient left the ED. bp Signatures: Dispatcher [employer] EDPR Edelmira Delaney RN RN aa5 Jhony Bryan, ANTONELLA WHEEL SETTER pm1 Kelly Clifton rg4 Thony La RN RN jd3 Donavan Rubalcava RN RN bp
--- NOTE | 2021-08-22 18:08 | EDPHYS ---
Physician Documentation [facility] Name: Reddy Julio Age: 21 yrs Sex: Male : 2000 Arrival Date: 08/22/2021 Time: 15:23 Bed 8 Private MD: ED Physician Ismael Morales HPI: 08/22 15:32 This 21 yrs old Male presents to ER via Ambulatory with complaints of Possible Kidney pm1 Stone. 15:32 The patient complains of pain in the left low back. pm1 15:32 The pain does not radiate. Onset: The symptoms/episode began/occurred this morning. pm1 Modifying factors: The symptoms are alleviated by nothing. the symptoms are aggravated by nothing. Associated signs and symptoms: The patient has no apparent associated signs or symptoms, Pertinent negatives: dysuria, fever, nausea, vomiting. Severity of pain: in the emergency department the pain is unchanged. The patient has experienced a previous episode, approximately 2 months ago, and the symptoms today are exactly the same. The patient has not recently seen a physician. Historical: - Allergies: 15:35 No Known Allergies; aa5 - PMHx: 15:35 Kidney stone; aa5 - Immunization history:: Adult Immunizations up to date. - Social history:: Smoking status: unknown. ROS: 15:32 Constitutional: Negative for fever, chills, and weight loss, Cardiovascular: Negative pm1 for chest pain, palpitations, and edema, Respiratory: Negative for shortness of breath, cough, wheezing, and pleuritic chest pain, Abdomen/GI: Negative for abdominal pain, nausea, vomiting, diarrhea, and constipation. 15:32 : Negative for injury, bleeding, discharge, and swelling, MS/Extremity: Negative for injury and deformity, Skin: Negative for injury, rash, and discoloration, Neuro: Negative for headache, weakness, numbness, tingling, and seizure. 15:32 Back: Positive for flank pain, on the left. 15:32 All other systems are negative. Exam: 15:32 Constitutional: This is a well developed, well nourished patient who is awake, alert, pm1 and in no acute distress. Head/Face: Normocephalic, atraumatic. 15:32 Skin: Warm, dry with normal turgor. Normal color with no rashes, no lesions, and no evidence of cellulitis. MS/ Extremity: Pulses equal, no cyanosis. Neurovascular intact. Full, normal range of motion. 15:32 Cardiovascular: Exam negative for acute changes, Rate: normal, Rhythm: regular, Pulses: no pulse deficits are appreciated, Heart sounds: normal, normal S1and S2. 15:32 Respiratory: Exam negative for acute changes, respiratory distress, shortness of breath. 15:32 Abdomen/GI: Exam negative for acute changes, Inspection: abdomen appears normal, Palpation: abdomen is soft and non-tender, in all quadrants. 15:32 Back: CVA tenderness, that is mild, is noted on the left. 15:32 Neuro: Exam negative for acute changes, Orientation: is normal, Mentation: is normal, Motor: is normal, moves all fours. Vital Signs: 15:26 BP 152 / 94; Pulse 76; Resp 20 S; Temp 98.2(O); Pulse Ox 99% on R/A; Weight 86.18 kg aa5 (R); Height 5 ft. 8 in. (172.72 cm) (R); 16:18 BP 136 / 88; Pulse 16; Resp 17; Pulse Ox 99% ; bp 18:14 BP 133 / 92; Pulse 62; Resp 16; Pulse Ox 100% ; bp 15:26 Body Mass Index 28.89 (86.18 kg, 172.72 cm) aa5 MDM: 15:29 Patient medically screened. pm1 16:41 Data reviewed: vital signs. Data interpreted: Pulse oximetry: on room air is 99 %. pm1 Interpretation: normal. Counseling: I had a detailed discussion with the patient and/or guardian regarding: the historical points, exam findings, and any diagnostic results supporting the discharge/admit diagnosis, lab results, radiology results, the need for outpatient follow up, a urologist. 16:41 ED course: Pending urine sample. pm1 0524 15:32 Order name: CBC with Diff; Complete Time: 16:07 pm08/22 15:32 Order name: CMP; Complete Time: 16:07 pm1 08/22 15:32 Order name: Lipase; Complete Time: 16:07 pm1 08/22 15:32 Order name: CT Stone Protocol; Complete Time: 16:32 pm1 08/22 15:32 Order name: Urine Microscopic Only; Complete Time: 17:49 pm1 08/22 16:56 Order name: Urine Dipstick-Ancillary; Complete Time: 17:13 EDMS 08/22 15:32 Order name: IV Saline Lock; Complete Time: 15:35 pm1 08/22 15:32 Order name: Labs collected and sent; Complete Time: 15:39 pm1 08/22 15:32 Order name: Urine Dipstick-Ancillary (obtain specimen); Complete Time: 16:57 pm1 Administered Medications: 15:39 Drug: NS 0.9% 1000 ml Route: IV; Rate: 1 bolus; Site: right antecubital; jd3 18:16 Follow up: IV Status: Completed infusion; IV Intake: 1000ml bp 15:39 Drug: Ketorolac 30 mg Route: IVP; Site: right antecubital; jd3 16:45 Follow up: Response: Pain is decreased bp 16:44 Drug: Flomax (tamsulosin) 0.4 mg Route: PO; bp 16:57 Follow up: Response: No adverse reaction bp Disposition: 08/23 08:41 Co-signature as Attending Physician, Ismael Morales MD. rn Disposition Summary: 08/22/21 18:07 Discharge Ordered Location: Home pm1 Problem: new pm1 Symptoms: have improved pm1 Condition: Stable pm1 Diagnosis - Calculus of ureter pm1 Followup: pm1 - With: Emergency Department - When: As needed - Reason: Worsening of condition Followup: pm1 - With: Private Physician - When: 2 - 3 days - Reason: Recheck today's complaints, Continuance of care, Re-evaluation by your physician Discharge Instructions: - Discharge Summary Sheet pm1 - Kidney Stones pm1 - Dietary Guidelines to Help Prevent Kidney Stones pm1 Forms: - Medication Reconciliation Form pm1 - Thank You Letter pm1 - Antibiotic Education pm1 - Prescription Opioid Use pm1 Prescriptions: - Tramadol 50 mg Oral Tablet - take 1 tablet by ORAL route every 8 hours as needed; 12 tablet; Refills: 0, pm1 Product Selection Permitted - Flomax 0.4 mg Oral capsule - take 1 capsule by ORAL route once daily . 1/2 hour following the same meal each pm1 day; 5 capsule; Refills: 0, Product Selection Permitted Signatures: Dispatcher [employer] Ismael Ibarra MD MD rn Calderon, Audri RN RN aa5 Jhony Bryan NP RESERVOIR ENGINEERING MANAGER pm1 Thony La, RN RN jd3 Donavan Rubalcava, RN RN bp
[2021-08-22 18:26] VITALS: TEMP 98.2
[2021-08-22 18:29] VITALS: BP 133/92; O2SAT 100
== END 2021-08-22 18:17 | disposition home or self-care (01) ==
LOC: ER 15:21
DX: N20.1 Calculus of ureter (principal); Z87.442 Personal history of urinary calculi
CPT/HCPCS: 96361; 85025; 36415; 83690; 80053; 76377; 74176; 96374; 99284; J7030; 81003; 81015